=== PATIENT | male | born 1945 | race Caucasian/White ===

== ENCOUNTER 2019-03-31 19:04 | Emergency (ER) | payer MEDICARE ==
[~2019-03-31] VITALS: Ht 177.8 cm; Wt 65.8 kg
[2019-03-31] MEDS ORDERED: TAMS.4ER PO (19:21)
[2019-03-31] MEDS ORDERED: LUPRON DEPOT3.75 MG (19:22)
[2019-03-31 20:03] LABS: Source, Urine Catheter
[2019-03-31 20:05] LABS: Bilirubin, Urine Neg (Neg); Blood, Urine 4+ (Neg); Glucose Qualitative, Urine Neg (Neg); Ketones, Urine Neg (Neg); Leukocyte Esterase, Urine 3+ (Neg); Nitrite, Urine Pos (Neg); Protein, Urine 1+ (Neg); Urobilinogen, Urine NORM (Normal)
[2019-03-31 20:10] LABS: Appearance, Urine Clear (Clear); Color, Urine Yellow (P-Yellow)
[2019-03-31 20:11] LABS: Red Blood Cells, Urine 25-50 /hpf (0-2)
[2019-03-31 20:12] LABS: Bacteria Many /hpf; Squamous Epithelial Cells Not Seen /hpf (Few); White Blood Cells, Urine 50-100 /hpf (0-5)
[2019-03-31] MEDS ORDERED: Cipro500 MG PO (20:41)
== END 2019-03-31 20:51 | disposition home or self-care (01) ==
LOC: ER 19:04
PROVIDERS: Emergency Medicine
DX: T83.098A Other mechanical complication of other urinary catheter, initial encounter (principal); N39.0 Urinary tract infection, site not specified; N13.9 Obstructive and reflux uropathy, unspecified; Z79.899 Other long term (current) drug therapy
CPT/HCPCS: 51702; 81001; 87077; 87086; 87186; 99283-25